=== PATIENT | female | born 1950 | race Caucasian/White ===

== ENCOUNTER 2017-09-08 15:36 | Emergency (ER) | payer SELFPAY ==
[~2017-09-08] VITALS: Ht 172.7 cm; Wt 108.0 kg
[2017-09-08 15:56] VITALS: Ht 172.7 cm; Wt 108.0 kg
[2017-09-08 18:38] VITALS: BP 152/81
== END 2017-09-08 18:38 | disposition home or self-care (01) ==
LOC: ED 15:36
DX: R07.89 Other chest pain (principal); I10 Essential (primary) hypertension